=== PATIENT | male | born 1970 | race Caucasian/White ===

== ENCOUNTER 2020-02-23 11:16 | Emergency (ER) | payer SELFPAY ==
[~2020-02-23] VITALS: Ht 180.3 cm; Wt 104.3 kg
[2020-02-23 11:16] VITALS: BP 150/89
--- NOTE | 2020-02-23 11:51 | PHYS DOC ---
Past History Past Medical History: No Pertinent History Past Surgical History: Other Smoking: Non-smoker Alcohol Use: None General Adult EDM: Chief Complaint: SHOULDER INJURY HPI: HPI: Patient is a 49 year old male who presents for evaluation of left arm pain extending up into his shoulder. Patient has history of prior biceps tendon repair in [place] about 4 years ago. Patient states he was putting together a trigger grill when he felt severe pain to his biceps muscle area. He is concerned that he may have ruptured his biceps tendon. Patient was in moderate distress prior to arrival. Patient took diclofenac and Percocet prior to arrival. No other injuries are reported. Sensation was intact in his arm and his pain was limited to that bicep. Review of Systems: Review of Systems: Constitutional: Denies fever or chills Eyes: Denies change in visual acuity HENT: Denies nasal congestion or sore throat Respiratory: Denies cough or shortness of breath Cardiovascular: Denies chest pain or edema GI: Denies abdominal pain, nausea, vomiting, bloody stools or diarrhea : Denies dysuria Musculoskeletal: Denies back pain or joint pain, moderate bicep area pain left side Integument: Denies rash Neurologic: Denies headache, focal weakness or sensory changes Endocrine: Denies polyuria or polydipsia Lymphatic: Denies swollen glands Psychiatric: Denies depression or anxiety Heart Score: Risk Factors: Risk Factors: DM, Current or recent (<one month) smoker, HTN, HLP, family hi story of CAD, obesity. Risk Scores: Score 0 - 3: 2.5% MACE over next 6 weeks - Discharge Home Score 4 - 6: 20.3% MACE over next 6 weeks - Admit for Clinical Observation Score 7 - 10: 72.7% MACE over next 6 weeks - Early Invasive Strategies Allergies: Allergies: Allergies Coded Allergies Type Severity Reaction Last Updated Verified tramadol Allergy Unknown 02/23/20 Yes Physical Exam: PE: Constitutional: Well developed, well nourished, mild acute distress, non-toxic appearance. [] HENT: Normocephalic, atraumatic, bilateral external ears normal, nose normal. [] Eyes: PERRL, EOMI, conjunctiva normal, no discharge. [] Neck: Normal range of motion, no tenderness, supple, no stridor. [] Cardiovascular:Heart rate regular rhythm, no murmur [] Lungs & Thorax: Bilateral breath sounds clear to auscultation [] Abdomen: Bowel sounds normal, soft, no tenderness, no masses, no pulsatile masses. [] Skin: Warm, dry, no erythema, no rash. [] Back: No tenderness, no CVA tenderness. [] Extremities: moderate tenderness left bicep area, no cyanosis, ROM limited left arm due to pain, mild edema. [] Neurologic: Alert and oriented X 3, normal motor function, normal sensory function, no focal deficits noted. [] Psychologic: Affect normal, judgement normal, mood normal. [] Current Patient Data: Vital Signs: Vital Signs Date Time Temp Pulse Resp B/P (MAP) Pulse Ox O2 Delivery O2 Flow Rate FiO2 02/23/20 11:16 90 22 150/89 (109) 100 Room Air EKG: EKG: [] Radiology/Procedures: Radiology/Procedures: [address] [address] IMAGING REPORT Signed PATIENT: BHAVIK PEREZ SACCOUNT: [id number] : 1970 LOCATION: ER AGE: 49 SEX: M EXAM STATUS: REG ER ORD. PHYSICIAN: CARITO MENDOSA DO REASON: pain, injury PROCEDURE: HUMERUS LEFT Left humerus 2 views: Reason for examination: Pain after injury. The humerus appears to be intact with no evidence of fracture. The bone density is normal. No abnormal periosteal reaction is seen. No abnormality seen at the elbow joint. There appears to be widening of the AC joint and mild elevation of the distal clavicle from the acromium. IMPRESSION: No acute bony abnormality at the humerus. Widened AC joint with mild elevation of the distal clavicle from the acromium. Electronically signed by: Rosaura Fontana MD (02/23/2020 11:49 AM) [facility] DICTATED AND SIGNED BY: ROSAURA FONTANA MD DATE: 02/23/20 1149 CC: PCP,VIMAL; CARITO MENDOSA DO ~ [] Course & Med Decision Making: Course & Med Decision Making Pertinent Labs and Imaging studies reviewed. (See chart for details) [] Dragon Disclaimer: Dragon Disclaimer: This electronic medical record was generated, in whole or in part, using a voice recognition dictation system. 1157 network operations lead for orthopedic surgeon paged to discuss case. 1220 patient stable, sling given for comfort. Patient neurovascularly intact at this time. Close follow-up recommended. He may not actually see in a local orthopedic surgeon as he plans to go back to [place] this week. Patient states he needs refill on some pain medication since his Percocet was Departure Departure: Impression: Primary Impression: Biceps tendon tear Additional Impression: Left arm pain Disposition: HOME/RESIDENCE PRIOR TO ADM Condition: STABLE Referrals: PCP,VIMAL (PCP) HANS CALIX MD Patient Instructions: Biceps Tendon Disruption (Proximal) with [facility] Additional Instructions: No use of left arm until cleared by orthopedic surgeon. Dr. Calix was our orthopedic surgeon on-call. Close follow-up this week with orthopedic surgeon recommended. Scripts Hydrocodone Bit/Acetaminophen (NORCO 5-325 TABLET) 1 Each Tablet 1 TAB PO PRN Q6HRS PRN for PAIN, #14 TAB 0 Refills Prov: CARITO MENDOSA DO 02/23/20 Justification of Admission: Justification of Admission: Justification of Admission Dx: N/A CARITO MENDOSA DO Feb 23, 2020 11:51
[2020-02-23] MEDS ORDERED: HYDR-3165 PO (12:21)
== END 2020-02-23 12:30 | disposition home or self-care (01) ==
LOC: ER 11:16
DX: S46.212A Strain of muscle, fascia and tendon of other parts of biceps, left arm, initial encounter (principal); Z88.6 Allergy status to analgesic agent; X50.9XXA Other and unspecified overexertion or strenuous movements or postures, initial encounter; Y93.89 Activity, other specified; Y92.89 Other specified places as the place of occurrence of the external cause; Y99.8 Other external cause status
CPT/HCPCS: 73060; 99283